=== PATIENT | male | born 1985 | race Caucasian/White ===

== ENCOUNTER 2020-06-29 19:03 | Inpatient (IN) | payer OTHER ==
--- OUTSIDE RECORDS SUMMARY | 2020-06-29 19:16 | XMS ---
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 If such information is present, then the following federally mandated warning applies: This information has been disclosed to you from records protected by federal confidentiality rules (42 CFR part 2). The federal rules prohibit you from making any further disclosure of this information unless further disclosure is expressly permitted by the written consent of the person to whom it pertains or as otherwise permitted by 42 CFR part 2. A general authorization for the release of medical or other information is NOT sufficient for this purpose. The Federal rules restrict any use of the information to criminally investigate or prosecute any alcohol or drug abuse patient.The records that you are about to access may contain highly sensitive health information, the redisclosure of which is protected by Article 27-F of the [facility] Public Health law. If you continue you may haveaccess to information: Regarding HIV / AIDS; Provided by facilities licensed or operated by the [facility] Office of Mental Health; or Provided by the [facility] Office for People With Developmental Disabilities. If such information is present, then the following [facility] mandated warning applies: This information has been disclosed to you from confidential records which are protected by state law. State law prohibits you from making any further disclosure of this information without the specific written consent of the person to whom it pertains, or as otherwise permitted by law. Any unauthorized further disclosure in violation of state law may result in a fine or fpc sentence or both. A general authorization for the release of medical or other information is NOT sufficient authorization for further disclosure. Insurance Providers Payer name Policy type Policy ID Covered Covered alliance party's Policy P bianca / Coverage alliance party ID relationship to Guerrero Inf ormation type guerrero GWEN [id number] 100 HEALTH NON CAP
--- NOTE | 2020-06-29 20:44 | BHS.RME ---
2019 N Coronavirus Screen - COVID-19 Screening Questions Dx of COVID-19 or had a positive test in the last 4 weeks?: No Contact with known/suspected COVID patient in last 14 days?: No Any of these symptoms or contact with someone who has?: Body Aches, Congestion or runny nose (withdrawal symptoms), Nausea or vomiting (vomiting x3) Substance Use & Tx History - Substance Use History Xanax Substance amount: 6mg Frequency of use: Daily Date of Last Use: 06/29/20 Heroin Substance amount: 16 bagts Frequency of use: Daily Substance route: Injection (ex: intravenous or skin popping) Date of Last Use: 06/29/20 - Last Treatment Date of last treatment: 10/05/2015-10/06/2015- Administrative d/c for smoking in room Treatment type: Substance Use Disorder (DILAN) Where was last treatment: Detox Physical/Psych/Mental Status - Behavior General Behavior: Increased activity (restlessness, agitation) Eye Contact: Normal - Cooperativeness Cooperativeness: Cooperative - Thinking Thought Processes: Logical Thought content: Future oriented - Physical Health Problems Is patient presently having any pain?: Yes (body aches, muscles aches, KNUTSON) Does patient presently have any injuries (include location): No Does patient currently have a fever: No COWS - Scale Resting Pulse: 2= [place] 101-120 Sweatin=Flushed/Facial Moisture Restless Observation: 1= Difficult to Sit Still Pupil Size: 1= Pupils >than Normal Bone or Joint Aches: 2= Severe Diffuse Aches Runny Nose/ Eye Tearin= Runny Nose/Eyes GI Upset > 30mins: 3= Vomiting/Diarrhea (vomiting x 2, no diarrhea) Tremor Observation: 2= Slight Tremor Visible Yawning Observation: 1= 1-2x During Session Anxiety or Irritability: 2=Irritable/Anxious Goose Flesh Skin: 0=Smooth Skin COWS Score: 18 CIWA Nausea/Vomitin (voomiting x 2) Muscle Tremors: 3 Anxiety: 3 Agitation: 3 Paroxysmal Sweats: 2 Orientation: 0-Oriented Tacttile Disturbances: 0-None Auditory Disturbances: 0-None Visual Disturbances: 0-None Headache: 4-Moderately Severe CIWA-Ar Total Score: 17 Treatment Recommendation - Level of Care Level of Care: Opioid Treatment Program (OTP) (Benzo. and heroin detoxification)
--- NOTE | 2020-06-29 21:29 | HP ---
COWS - Scale Resting Pulse: 2= [place] 101-120 Sweatin=Flushed/Facial Moisture Restless Observation: 1= Difficult to Sit Still Pupil Size: 1= Pupils >than Normal Bone or Joint Aches: 2= Severe Diffuse Aches Runny Nose/ Eye Tearin= Runny Nose/Eyes GI Upset > 30mins: 3= Vomiting/Diarrhea (vomiting x 2, no diarrhea) Tremor Observation: 2= Slight Tremor Visible Yawning Observation: 1= 1-2x During Session Anxiety or Irritability: 2=Irritable/Anxious Goose Flesh Skin: 0=Smooth Skin COWS Score: 18 CIWA Score Nausea/Vomitin (voomiting x 2) Muscle Tremors: 3 Anxiety: 3 Agitation: 3 Paroxysmal Sweats: 2 Orientation: 0-Oriented Tacttile Disturbances: 0-None Auditory Disturbances: 0-None Visual Disturbances: 0-None Headache: 4-Moderately Severe CIWA-Ar Total Score: 17 - Admission Criteria OASAS Guidelines: Admission for Medically Managed Detox: Requires at least one of the followin. CIWA greater than 12 2. Seizures within the past 24 hours 3. Delirium tremens within the past 24 hours 4. Hallucinations within the past 24 hours 5. Acute intervention needed for co occurring medical disorder 6. Acute intervention needed for co occurring psychiatric disorder 7. Severe withdrawal that cannot be handled at a lower level of care (continued vomiting, continued diarrhea, abnormal vital signs) requiring intravenous medication and/or fluids 8. Admitting History and Physical - Smoking History Smoking history: Current every day smoker Have you smoked in the past 12 months: Yes Aproximately how many cigarettes per day: 20 - Alcohol/Substance Use Hx Alcohol Use: No Admission [facility] Allergies/Adverse Reactions: Allergies Allergy/AdvReac Type Severity Reaction Status Date / Time No Known Allergies Allergy Verified 10/05/15 16:08 History of Present Illness: 35 y.o. male requesting detox from heroin use , relapsed March 2019 , was sober 3.5 yrs , moved to [place] and had a job , returned to [place] and relapsed. heroin - 8-16 bags/ day IV in UE , needles from the store , + sharing , + re-using , had swelling in the left forearm 2-3 weeks ago . Latest use this morning . cannabis : not daily crystal metamphetamine IV cocaine : IV benzo : 2 mg xanax 2-3 /day , had withdrawal seizure once , has blackouts w/ use , latest use today etoh - 2 packs of beer - 2 pints whiskey daily " when I am drinking " , latest use > 24 hrs ago tobacco : 09/18-09/16 ppd finances habit through construction work PMHX : dog bite left LE w/ scarring and nerve damage (2016) PSHx : LLE as above Psych : denies Meds : denies allergies : NKDA Exam Limitations: Clinical Condition - Review of Systems Constitutional: Loss of Appetite, Malaise, Unintentional Wgt. Loss (35 lbs since using crystal metamphetamine February 2020) EENT: reports: Other (glasses) Respiratory: reports: Shortness of Breath (intermittent , states sometimes awakening him from sleep and has to drink water for it.) Cardiac: reports: No Symptoms Reported GI: reports: Poor Appetite, Vomiting : reports: No Symptoms Reported Musculoskeletal: reports: Muscle Pain Integumentary: reports: Flushing, Sweating, Other (IV use) Neuro: reports: No Symptoms reported Endocrine: reports: See HPI, Flushing, Unexplained Weight Loss Hematology: reports: No Symptoms Reported Psychiatric: reports: Orientated x3, Agitated, Anxious Patient History - Patient Medical History Hx Anemia: No Hx Asthma: No Hx Chronic Obstructive Pulmonary Disease (COPD): No Hx Cancer: No Hx Cardiac Disorders: No Hx Congestive Heart Failure: No Hx Hypertension: No Hx Hypercholesterolemia: No Hx Pacemaker: No HX Cerebrovascular Accident: No Hx Seizures: No Hx Dementia: No Hx Diabetes: No Hx Gastrointestinal Disorders: No Hx Liver Disease: No Hx Genitourinary Disorders: No Hx Sexually Transmitted Disorders: No Hx Renal Disease (ESRD): No Hx Thyroid Disease: No Hx Human Immunodeficiency Virus (HIV): No Hx Hepatitis C: No Hx Depression: No Hx Suicide Attempt: No Hx Schizophrenia: No - Patient Surgical History Past Surgical History: No Hx Neurologic Surgery: No Hx Cataract Extraction: No Hx Cardiac Surgery: No Hx Lung Surgery: No Hx Breast Surgery: No Hx Breast Biopsy: No Hx Abdominal Surgery: No Hx Appendectomy: No Hx Cholecystectomy: No Hx Genitourinary Surgery: No Hx Section: No Hx Orthopedic Surgery: No Other Surgical History: left leg Anesthesia Reaction: No - PPD History Date: 08/28/13 Results: 0 mm - Smoking Cessation Smoking history: Current every day smoker Have you smoked in the past 12 months: Yes Aproximately how many cigarettes per day: 20 Cigars Per Day: 12 Hx Chewing Tobacco Use: No Initiated information on smoking cessation: Yes 'Breaking Loose' booklet given: 06/29/20 Admission Physical Exam [facility] - Physical General Appearance: Yes: Mild Distress, Moderate Distress, Anxious HEENTM: Yes: EOMI, Hearing grossly Normal, Normocephalic, Normal Voice Respiratory: Yes: Chest Non-Tender, Lungs Clear, Normal Breath Sounds, No Respiratory Distress, No Accessory Muscle Use Neck: Yes: No masses,lesions,Nodules, Trachea in good position Cardiology: Yes: Regular Rhythm, Regular Rate, S1, S2, Tachycardia Abdominal: Yes: Non Tender, Soft Back: Yes: Normal Inspection Musculoskeletal: Yes: Gait Steady, Muscle Pain (generalized bodyaches) Extremities: Yes: Normal Range of Motion, Non-Tender Neurological: Yes: Fully Oriented, Alert Integumentary: Yes: Warm, Track Myers (left ue w/ edema/ erythema left forearm and left medially , inferior to antecubital) - Diagnostic (1) Alcohol dependence Current Visit: Yes Status: Chronic (2) Cannabis dependence Current Visit: Yes Status: Chronic (3) Opioid dependence Current Visit: Yes Status: Chronic (4) Sedative dependence Current Visit: Yes Status: Chronic (5) Cocaine dependence, uncomplicated Current Visit: Yes Status: Chronic (6) Nicotine dependence Current Visit: Yes Status: Chronic Qualifiers: Nicotine product type: cigarettes (7) Amphetamine abuse Current Visit: Yes Status: Chronic Inpatient Rehab Admission - Rehab Decision to Admit Inpatient rehab admission?: No
[2020-06-29] MEDS ORDERED: IBUPROFEN 400 MG TABLET (FP) PO PRN (21:41)
[2020-06-29] MEDS ORDERED: BISMUTH SUBSALICYLATE 524 MG/30 ML UD PO PRN (21:41)
[2020-06-29] MEDS ORDERED: MAG HYDROX/AL HYDROX/SIMETH 30 ML UNIT-DOSE CUP PO PRN (21:41)
[2020-06-29] MEDS ORDERED: NICOTINE POLACRILEX 2 MG GUM BUC PRN (21:41)
[2020-06-29] MEDS ORDERED: MAGNESIUM HYDROX 2400MG/30ML ORAL SUSPENSION 30 ML CUP PO PRN (21:41)
[2020-06-29] MEDS ORDERED: ONDANSETRON *ODT* 4 MG TABLET SL PRN (21:41)
[2020-06-29] MEDS ORDERED: MENTHOL/PHENOL 1 EACH UD MM PRN (21:41)
[2020-06-29] MEDS ORDERED: MELATONIN 5 MG TABLETS PO PRN (21:41)
[2020-06-29] MEDS ORDERED: MAGNESIUM CITRATE 300 ML BOTTLE PO PRN (21:41)
[2020-06-29] MEDS ORDERED: ACETAMINOPHEN 325 MG TABLET (FP) PO PRN (21:41)
[2020-06-29] MEDS ORDERED: chlordiazePOXIDE HCL 25 MG CAPSULE PO PRN (21:44)
[2020-06-29 21:57] VITALS: BMI 21.8
--- OUTSIDE RECORDS SUMMARY | 2020-06-29 22:40 | XMS ---
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 If you continue you may haveaccess to information: Regarding HIV / AIDS; Provided by facilities licensed or operated by the [facility] Office of Mental Health; or Provided by the [facility] Office for People With Developmental Disabilities. If such information is present, then the following [facility] mandated warning applies: This information has been [...] law may result in a fine or fdc sentence or both. A general authorization for the release of medical or other information is NOT sufficient authorization for further disclosure. Insurance Providers Payer name Policy type Policy ID Covered Covered green party's Policy P bianca / Coverage green party ID relationship to [employer] Inf ormation type guerrero SELF PAY SP INSURANCE GWEN [id number] 100 HEALTH NON CAP
[2020-06-29] MEDS ORDERED: METHADONE HCL 10 MG TABLET (FOR DETOX USE ONLY) PO ONE (23:00)
[2020-06-29] MEDS: chlordiazePOXIDE HCL 25 MG CAPSULE PO SCH (23:48)
[2020-06-29] MEDS: SULFAMETHOXAZOLE/TRIMETHOPRIM 800MG/160MG D.S. TABLET PO SCH (23:56)
[2020-06-29] MEDS: THIAMINE HCL 100 MG TABLET (FP) PO SCH (23:56)
[2020-06-30] MEDS: chlordiazePOXIDE HCL 25 MG CAPSULE PO SCH (05:28)
[2020-06-30] MEDS ORDERED: METHADONE HCL 5 MG TABLET (FOR DETOX USE ONLY) ONE (08:37)
[2020-06-30] MEDS ORDERED: METHADONE HCL 10 MG TABLET (FOR DETOX USE ONLY) ONE (08:37)
--- NOTE | 2020-06-30 08:46 | CONSULT ---
[facility] Psychiatric Consult - Data Date of interview: 06/30/20 Admission source: Self-referred Identifying data: Mr Schulz is a 35 years old male seeking detox treatment for alcohol, opioid, cocaine, benzodiazepine, cannabis and methamphetamine Substance Abuse History: Reports history of alcohol, heroin, cocaine, xanax, marijuana and crystal meth use. Refer to addiction counselor's summary for further information Medical History: Significant for history of surgery to repair nerve damage of left leg due to a dog bite in 2016. Smokes 10 cigarettes daily Psychiatric History: Patient is known for multiple previous admission to this facility. He was approached at bedside for psychiatric interview. told food writer:" I have to see you for what. I don't want to see psychiatrist"
--- NOTE | 2020-06-30 09:56 | PN ---
[facility] CIWA - CIWA Score Nausea/Vomitin Muscle Tremors: 3 Anxiety: 3 Agitation: 3 Paroxysmal Sweats: 1-Minimal Palms Moist Orientation: 0-Oriented Tacttile Disturbances: 1-Very Mild Itch/Numbness Auditory Disturbances: 0-None Visual Disturbances: 0-None Headache: 2-Mild CIWA-Ar Total Score: 16 BHS COWS - Scale Resting Pulse: 0= [place] 80 or Below Sweatin= No chills or Flushing Restless Observation: 3= Extraneous Movement Pupil Size: 1= Pupils >than Normal Bone or Joint Aches: 2= Severe Diffuse Aches Runny Nose/ Eye Tearin= Runny Nose/Eyes GI Upset > 30mins: 2= Nausea/Diarrhea Tremor Observation of Outstretched Hands: 2= Slight Tremor Visible Yawning Observation: 2= >3x During Session Anxiety or Irritability: 2=Irritable/Anxious Goose Flesh Skin: 0=Smooth Skin COWS Score: 16 S Progress Note (SOAP) Subjective: alert,irritable,anxious,sweating,pain in the body,back,nausea ,diarrhea,interrupted sleep,tremor Objective: 06/30/20 09:54 Vital Signs Temperature 97.1 F L 06/30/20 09:30 Pulse Rate 63 06/30/20 09:30 Respiratory Rate 18 06/30/20 09:30 Blood Pressure 132/63 06/30/20 09:30 O2 Sat by Pulse Oximetry (%) 97 06/30/20 09:30 06/30/20 09:55 labs pending Assessment: 06/30/20 09:55 withdrawal symptom Plan: continue detox,patient would like regimen to change for methadone and librium to methadone and valium
[2020-06-30] MEDS ORDERED: METHADONE (DETOX) 20 MG, METHADONE (DETOX) 5 MG PO ONE (10:00)
[2020-06-30 10:07] LABS: ALBUMIN 2.8 g/dl (3.4-5.0); CALCIUM 9.6 mg/dL (8.5-10.1); POTASSIUM 3.9 mmol/L (3.5-5.1)
[2020-06-30 10:08] LABS: BILIRUBIN,TOTAL 1.1 mg/dL (0.2-1); CREATININE 0.8 mg/dL (0.55-1.3)
[2020-06-30] MEDS: SULFAMETHOXAZOLE/TRIMETHOPRIM 800MG/160MG D.S. TABLET PO SCH ×2 (10:10→22:09)
[2020-06-30] MEDS: PRENATAL VITAMINS W/ FOLIC ACID TABLET (FP) PO SCH (10:10)
[2020-06-30 10:11] LABS: HEMATOCRIT 32.5 % (35.4-49); HEMOGLOBIN 10.7 GM/dL (11.7-16.9); MCH 26.2 pg (25.7-33.7); MCHC 33.1 g/dl (32.0-35.9); MEAN CELL VOLUME 79.2 fl (80-96); MEAN PLT VOLUME 8.1 fl (7.5-11.1); PLATELET COUNT 251 K/MM3 (134-434); RDW 15.7 % (11.9-15.9); WHITE BLOOD COUNT 3.7 K/mm3 (4.0-10.0)
[2020-06-30] MEDS: diazePAM 5 MG TABLET PO SCH ×3 (10:15→22:08)
[2020-06-30] MEDS: METHOCARBAMOL 500 MG TABLET PO PRN (10:16)
[2020-06-30] MEDS: ACETAMINOPHEN 325 MG TABLET (FP) PO PRN (10:16)
[2020-06-30] MEDS: hydrOXYzine PAMOATE 25 MG CAPSULE (FP) PO PRN (10:16)
[2020-06-30] MEDS ORDERED: PNEUMOCOCCAL 23 VACCINE 0.5 ML VIAL IM ONE (12:00)
--- NOTE | 2020-06-30 13:43 | EKG ---
Test Reason : Blood Pressure : / mmHG Vent. Rate : 076 BPM Atrial Rate : 076 BPM P-R Int : 152 ms QRS Dur : 100 ms QT Int : 364 ms P-R-T Axes : 055 -06 044 degrees QTc Int : 409 ms NORMAL SINUS RHYTHM NORMAL ECG NO PREVIOUS ECGS AVAILABLE Confirmed by STAN WHEELER MD ([id number]) on 06/30/2020 1:42:28 PM Referred By: Gaetano Mittal Confirmed By:STAN WHEELER MD
[2020-06-30] MEDS: THIAMINE HCL 100 MG TABLET (FP) PO SCH (22:08)
[2020-07-01] MEDS: diazePAM 5 MG TABLET PO PRN ×3 (00:55→19:23)
[2020-07-01] MEDS ORDERED: chlordiazePOXIDE HCL 25 MG CAPSULE PO SCH (05:00)
[2020-07-01] MEDS: diazePAM 5 MG TABLET PO SCH ×4 (05:37→22:11)
[2020-07-01] MEDS ORDERED: METHADONE HCL 10 MG TABLET (FOR DETOX USE ONLY) PO ONE (10:00)
[2020-07-01] MEDS: hydrOXYzine PAMOATE 25 MG CAPSULE (FP) PO PRN (10:17)
[2020-07-01] MEDS: METHOCARBAMOL 500 MG TABLET PO PRN (10:18)
[2020-07-01] MEDS: SULFAMETHOXAZOLE/TRIMETHOPRIM 800MG/160MG D.S. TABLET PO SCH ×2 (10:18→22:11)
[2020-07-01] MEDS: PRENATAL VITAMINS W/ FOLIC ACID TABLET (FP) PO SCH (10:19)
[2020-07-01] MEDS ORDERED: PNEUMOC 13-VAL CONJ-DIP CRM/PF 0.5 ML DISP.SYRIN IM ONE (12:00)
[2020-07-01] MEDS ORDERED: FLU VACCINE (FLULAVAL) PF 60 MCG/0.5 ML SYRINGE 2020-2021 IM ONE (12:00)
[2020-07-01] MEDS: ACETAMINOPHEN 325 MG TABLET (FP) PO PRN (15:22)
--- NOTE | 2020-07-01 18:11 | PN ---
S CIWA - CIWA Score Nausea/Vomitin-No Nausea/No Vomiting Muscle Tremors: None Anxiety: 4-Mod. Anxious/Guarded Agitation: 3 Paroxysmal Sweats: 3 Orientation: 0-Oriented Tacttile Disturbances: 1-Very Mild Itch/Numbness Auditory Disturbances: 0-None Visual Disturbances: 1-Very Mild Sensitivity Headache: 0-None Present CIWA-Ar Total Score: 12 BHS COWS - Scale Resting Pulse: 0= [place] 80 or Below Sweatin= Chills/Flushing Restless Observation: 1= Difficult to Sit Still Pupil Size: 0= Normal to Room Light Bone or Joint Aches: 2= Severe Diffuse Aches Runny Nose/ Eye Tearin= None GI Upset > 30mins: 0= None Tremor Observation of Outstretched Hands: 2= Slight Tremor Visible Yawning Observation: 1= 1-2x During Session Anxiety or Irritability: 2=Irritable/Anxious Goose Flesh Skin: 3=Piloerection COWS Score: 12 BHS Progress Note (SOAP) Subjective: Anxious, Sweating, Tremors, Restless. Objective: Patient A & O X 3, Observed Ambulating on Detox Unit Unassisted. In No Acute Distress. 07/01/20 18:07 Vital Signs Temperature 97.7 F 07/01/20 16:55 Pulse Rate 76 07/01/20 16:55 Respiratory Rate 17 07/01/20 16:55 Blood Pressure 121/69 07/01/20 16:55 O2 Sat by Pulse Oximetry (%) 99 07/01/20 16:55 Laboratory Tests 06/29/20 06/30/20 06/30/20 23:50 07:50 07:50 WBC 3.7 L RBC 4.10 Hgb 10.7 L Hct 32.5 L MCV 79.2 L MCH 26.2 D MCHC 33.1 RDW 15.7 D Plt Count 251 MPV 8.1 Sodium Potassium Chloride Carbon Dioxide Anion Gap BUN Creatinine Est GFR (CKD-EPI)AfAm Est GFR (CKD-EPI)NonAf Random Glucose Calcium Total Bilirubin AST ALT Alkaline Phosphatase Total Protein Albumin Syphilis Serology Non-reactive COVID-19 (DWAINE) Not detected 06/30/20 07:50 WBC RBC Hgb Hct MCV MCH MCHC RDW Plt Count MPV Sodium 136 Potassium 3.9 Chloride 97 L Carbon Dioxide 34 H Anion Gap 5 L BUN 13.0 Creatinine 0.8 Est GFR (CKD-EPI)AfAm 133.20 Est GFR (CKD-EPI)NonAf 114.93 Random Glucose 93 Calcium 9.6 Total Bilirubin 1.1 H AST 36 ALT 46 Alkaline Phosphatase 277 H Total Protein 6.0 L Albumin 2.8 L Syphilis Serology COVID-19 (DWAINE) Lab Results noted. Assessment: 07/01/20 18:09 WITHDRAWAL SYMPTOMS. ELEVATED AP LEVEL. Plan: Continue Detox. Feosol, 325 mg TIDCM for Anemia. PRN Methocarbamol for body aches / muscle spasms.
[2020-07-01] MEDS: FERROUS SO4 325 MG TABLET (FP) PO SCH (19:00)
[2020-07-01] MEDS: THIAMINE HCL 100 MG TABLET (FP) PO SCH (22:11)
[2020-07-02] MEDS ORDERED: chlordiazePOXIDE HCL 10 MG CAPSULE PO PRN
[2020-07-02] MEDS: METHOCARBAMOL 500 MG TABLET PO PRN (00:39)
[2020-07-02] MEDS: diazePAM 5 MG TABLET PO PRN ×2 (00:40→09:31)
[2020-07-02] MEDS ORDERED: chlordiazePOXIDE HCL 10 MG CAPSULE PO SCH (05:00)
[2020-07-02] MEDS ORDERED: diazePAM 5 MG TABLET PO SCH (06:00)
[2020-07-02] MEDS: FERROUS SO4 325 MG TABLET (FP) PO SCH (07:28)
[2020-07-02] MEDS ORDERED: METHADONE HCL 5 MG TABLET (FOR DETOX USE ONLY) ONE (08:55)
[2020-07-02] MEDS ORDERED: METHADONE HCL 10 MG TABLET (FOR DETOX USE ONLY) ONE (08:55)
[2020-07-02] MEDS: SULFAMETHOXAZOLE/TRIMETHOPRIM 800MG/160MG D.S. TABLET PO SCH (09:28)
[2020-07-02] MEDS: PRENATAL VITAMINS W/ FOLIC ACID TABLET (FP) PO SCH (09:28)
[2020-07-02 09:55] VITALS: BP 127/87; PULSE 87; TEMP 97.5
[2020-07-02] MEDS ORDERED: METHADONE (DETOX) 10 MG, METHADONE (DETOX) 5 MG PO ONE (10:00)
--- NOTE | 2020-07-02 11:33 | PN ---
[facility] CIWA - CIWA Score Nausea/Vomitin-Mild Nausea/No Vomiting Muscle Tremors: 2 Anxiety: 3 Agitation: 2 Paroxysmal Sweats: 2 Orientation: 0-Oriented Tacttile Disturbances: 0-None Auditory Disturbances: 0-None Visual Disturbances: 0-None Headache: 0-None Present CIWA-Ar Total Score: 10 [facility] COWS - Scale Resting Pulse: 0= [place] 80 or Below Sweatin= Chills/Flushing Restless Observation: 0= Sits Still Pupil Size: 0= Normal to Room Light Bone or Joint Aches: 2= Severe Diffuse Aches Runny Nose/ Eye Tearin= None GI Upset > 30mins: 0= None Tremor Observation of Outstretched Hands: 2= Slight Tremor Visible Yawning Observation: 0= None Anxiety or Irritability: 2=Irritable/Anxious Goose Flesh Skin: 0=Smooth Skin COWS Score: 7 [facility] Progress Note (SOAP) Subjective: Complaints of sweats, anxiety. tremors, and joints aches. Objective: 07/02/20 11:32 Vital Signs 07/02/20 07/02/20 06:17 09:10 Temperature 97.0 F L 97.5 F L Pulse Rate 65 87 Respiratory 20 17 Rate Blood Pressure 110/64 127/87 O2 Sat by Pulse 100 100 Oximetry (%) Laboratory Last Values WBC 3.7 K/mm3 (4.0-10.0) L 06/30/20 07:50 RBC 4.10 M/mm3 (4.00-5.60) 06/30/20 07:50 Hgb 10.7 GM/dL (11.7-16.9) L 06/30/20 07:50 Hct 32.5 % (35.4-49) L 06/30/20 07:50 MCV 79.2 fl (80-96) L 06/30/20 07:50 MCH 26.2 pg (25.7-33.7) D 06/30/20 07:50 MCHC 33.1 g/dl (32.0-35.9) 06/30/20 07:50 RDW 15.7 % (11.9-15.9) D 06/30/20 07:50 Plt Count 251 K/MM3 (134-434) 06/30/20 07:50 MPV 8.1 fl (7.5-11.1) 06/30/20 07:50 Sodium 136 mmol/L (136-145) 06/30/20 07:50 Potassium 3.9 mmol/L (3.5-5.1) 06/30/20 07:50 Chloride 97 mmol/L (98-107) L 06/30/20 07:50 Carbon Dioxide 34 mmol/L (21-32) H 06/30/20 07:50 Anion Gap 5 MMOL/L (8-16) L 06/30/20 07:50 BUN 13.0 mg/dL (7-18) 06/30/20 07:50 Creatinine 0.8 mg/dL (0.55-1.3) 06/30/20 07:50 Est GFR (CKD-EPI)AfAm 133.20 06/30/20 07:50 Est GFR (CKD-EPI)NonAf 114.93 06/30/20 07:50 Random Glucose 93 mg/dL (74-106) 06/30/20 07:50 Calcium 9.6 mg/dL (8.5-10.1) 06/30/20 07:50 Total Bilirubin 1.1 mg/dL (0.2-1) H 06/30/20 07:50 AST 36 U/L (15-37) 06/30/20 07:50 ALT 46 U/L (13-61) 06/30/20 07:50 Alkaline Phosphatase 277 U/L (45-117) H 06/30/20 07:50 Total Protein 6.0 g/dl (6.4-8.2) L 06/30/20 07:50 Albumin 2.8 g/dl (3.4-5.0) L 06/30/20 07:50 Syphilis Serology Non-reactive (NONREACTIVE) 06/30/20 07:50 COVID-19 (DWAINE) Not detected (Not Detected) 06/29/20 23:50 Labs noted. Assessment: 07/02/20 11:32 Alert and oriented x3, in no acute respiratory distress. Full ROM, ambulating in unit without any assistance. Skin warm to touch. Withdrawal symptoms. Plan: Continue detox protocol.
--- NOTE | 2020-07-02 11:55 | DS ---
[facility] Detox Discharge Summary Admission Date: 06/29/20 Discharge Date: 07/02/20 - History Present History: Alcohol Dependence, Cannabis Dependence, Cocaine Dependence, Opioid Dependence Additional Comments: Detox protocol not completed, patient requesting to leave AMA. Encouraged to stay but refused. Alert and oriented x3, in no acute respiratory distress. Full ROM, ambulating in unit without any assistance. Skin warm to touch. Encouraged to followup with aftercare. Pertinent Past History: History of dog bite to left lower extremity, alcohol, Benzo, Cannabis, Crystal Meth,cocaine and nicotine use disorder. - Physical Exam Results Vital Signs: Vital Signs Temperature 97.5 F L 07/02/20 09:10 Pulse Rate 87 07/02/20 09:10 Respiratory Rate 17 07/02/20 09:10 Blood Pressure 127/87 07/02/20 09:10 O2 Sat by Pulse Oximetry (%) 100 07/02/20 09:10 Vital Signs 07/02/20 07/02/20 06:17 09:10 Temperature 97.0 F L 97.5 F L Pulse Rate 65 87 Respiratory 20 17 Rate Blood Pressure 110/64 127/87 O2 Sat by Pulse 100 100 Oximetry (%) Laboratory Last Values WBC 3.7 K/mm3 (4.0-10.0) L 06/30/20 07:50 RBC 4.10 M/mm3 (4.00-5.60) 06/30/20 07:50 Hgb 10.7 GM/dL (11.7-16.9) L 06/30/20 07:50 Hct 32.5 % (35.4-49) L 06/30/20 07:50 MCV 79.2 fl (80-96) L 06/30/20 07:50 MCH 26.2 pg (25.7-33.7) D 06/30/20 07:50 MCHC 33.1 g/dl (32.0-35.9) 06/30/20 07:50 RDW 15.7 % (11.9-15.9) D 06/30/20 07:50 Plt Count 251 K/MM3 (134-434) 06/30/20 07:50 MPV 8.1 fl (7.5-11.1) 06/30/20 07:50 Sodium 136 mmol/L (136-145) 10/16/20 07:50 Potassium 3.9 mmol/L (3.5-5.1) 06/30/20 07:50 Chloride 97 mmol/L (98-107) L 06/30/20 07:50 Carbon Dioxide 34 mmol/L (21-32) H 06/30/20 07:50 Anion Gap 5 MMOL/L (8-16) L 06/30/20 07:50 BUN 13.0 mg/dL (7-18) 06/30/20 07:50 Creatinine 0.8 mg/dL (0.55-1.3) 06/30/20 07:50 Est GFR (CKD-EPI)AfAm 133.20 06/30/20 07:50 Est GFR (CKD-EPI)NonAf 114.93 06/30/20 07:50 Random Glucose 93 mg/dL (74-106) 06/30/20 07:50 Calcium 9.6 mg/dL (8.5-10.1) 06/30/20 07:50 Total Bilirubin 1.1 mg/dL (0.2-1) H 06/30/20 07:50 AST 36 U/L (15-37) 06/30/20 07:50 ALT 46 U/L (13-61) 06/30/20 07:50 Alkaline Phosphatase 277 U/L (45-117) H 06/30/20 07:50 Total Protein 6.0 g/dl (6.4-8.2) L 06/30/20 07:50 Albumin 2.8 g/dl (3.4-5.0) L 06/30/20 07:50 Syphilis Serology Non-reactive (NONREACTIVE) 06/30/20 07:50 COVID-19 (DWAINE) Not detected (Not Detected) 06/29/20 23:50 Pertinent Admission Physical Exam Findings: Withdrawal symptoms. - Medication Discharge Medications: Ambulatory Orders NK [No Known Home Medication] 06/29/20 - Diagnosis (1) Alcohol dependence Current Visit: Yes Status: Chronic (2) Amphetamine abuse Current Visit: Yes Status: Chronic (3) Cannabis dependence Current Visit: Yes Status: Chronic (4) Cocaine dependence, uncomplicated Current Visit: Yes Status: Chronic (5) Nicotine dependence Current Visit: Yes Status: Chronic Qualifiers: Nicotine product type: cigarettes (6) Opioid dependence Current Visit: Yes Status: Chronic (7) Opioid dependence with withdrawal Current Visit: No Status: Acute - AMA Did Patient Leave Against Medical Advice: Yes
[2020-07-03] MEDS ORDERED: chlordiazePOXIDE HCL 10 MG CAPSULE PO SCH (05:00)
[2020-07-03] MEDS ORDERED: diazePAM 5 MG TABLET PO SCH (06:00)
[2020-07-03] MEDS ORDERED: METHADONE HCL 10 MG TABLET (FOR DETOX USE ONLY) PO ONE (10:00)
[2020-07-04] MEDS ORDERED: chlordiazePOXIDE HCL 10 MG CAPSULE PO ONE (05:00)
[2020-07-04] MEDS ORDERED: diazePAM 5 MG TABLET PO ONE (06:00)
[2020-07-04] MEDS ORDERED: METHADONE HCL 5 MG TABLET (FOR DETOX USE ONLY) PO ONE (06:00)
== END 2020-07-02 11:59 | disposition left against medical advice (07) | DRG 770 ==
LOC: YASAS 19:03 → Y6N 22:37
PROVIDERS: ADMIT Allergy & Immunology; ATTEND Allergy & Immunology
PROC: HZ2ZZZZ Detoxification Services for Substance Abuse Treatment (ICD-10-PCS; principal; 2020-06-29)
DX: F11.23 Opioid dependence with withdrawal (principal); F10.230 Alcohol dependence with withdrawal, uncomplicated; F14.20 Cocaine dependence, uncomplicated; F13.20 Sedative, hypnotic or anxiolytic dependence, uncomplicated; F12.20 Cannabis dependence, uncomplicated; F15.10 Other stimulant abuse, uncomplicated; F17.210 Nicotine dependence, cigarettes, uncomplicated; R74.8 Abnormal levels of other serum enzymes; R63.4 Abnormal weight loss; Z68.21 Body mass index [BMI] 21.0-21.9, adult
CPT/HCPCS: 36415; 80053; 85027; 86780; 93005; 93010; C9803; Q0162; Q2036; U0003

== ENCOUNTER 2021-09-16 19:56 | Inpatient (IN) | payer OTHER ==
[2021-09-16 21:40] VITALS: BMI 21.5
[2021-09-16] MEDS ORDERED: IBUPROFEN 400 MG TABLET (FP) PO PRN (22:21)
[2021-09-16] MEDS ORDERED: ONDANSETRON *ODT* 4 MG TABLET SL PRN (22:21)
[2021-09-16] MEDS ORDERED: chlordiazePOXIDE HCL 25 MG CAPSULE PO PRN (22:21)
[2021-09-16] MEDS ORDERED: MENTHOL/PHENOL 1 EACH UD MM PRN (22:21)
[2021-09-16] MEDS ORDERED: BISMUTH SUBSALICYLATE 524 MG/30 ML PO PRN (22:21)
[2021-09-16] MEDS ORDERED: methaDONE HCL 10 MG TABLET (FOR DETOX USE ONLY) PO ONE (22:21)
[2021-09-16] MEDS ORDERED: ACETAMINOPHEN 325 MG TABLET (FP) PO PRN ×2 (22:21)
[2021-09-16] MEDS ORDERED: MAG HYDROX/AL HYDROX/SIMETH 30 ML UNIT-DOSE CUP PO PRN (22:21)
[2021-09-16] MEDS ORDERED: MAGNESIUM HYDROX 2400MG/30ML ORAL SUSPENSION 30 ML CUP PO PRN (22:21)
[2021-09-16] MEDS ORDERED: MAGNESIUM CITRATE 300 ML BOTTLE PO PRN (22:21)
[2021-09-16] MEDS ORDERED: cloNIDine HCL 0.1 MG TABLET PO PRN (22:21)
[2021-09-17] MEDS: chlordiazePOXIDE HCL 25 MG CAPSULE PO SCH ×5 (00:35→22:00)
[2021-09-17] MEDS ORDERED: methaDONE HCL 10 MG TABLET (FOR DETOX USE ONLY) ONE (10:01)
[2021-09-17 11:11] LABS: HEMATOCRIT 40.1 % (35.4-49); MCH 27.6 pg (25.7-33.7); MCHC 32.5 g/dl (32.0-35.9); MEAN CELL VOLUME 84.9 fl (80-96); MEAN PLT VOLUME 8.8 fl (7.5-11.1); PLATELET COUNT 225 10^3/uL (134-434); RBC 4.72 M/mm3 (4.00-5.60); RDW 14.8 % (11.9-15.9); WHITE BLOOD COUNT 5.3 K/mm3 (4.0-10.0)
[2021-09-17] MEDS: PRENATAL VITAMINS W/ FOLIC ACID TABLET (FP) PO SCH (11:25)
[2021-09-17] MEDS: METHOCARBAMOL 500 MG TABLET PO PRN (11:25)
[2021-09-17 11:35] LABS: CALCIUM 8.6 mg/dL (8.5-10.1)
[2021-09-17 11:36] LABS: ALBUMIN 3.8 g/dl (3.4-5.0); BLOOD UREA NITROGEN 17.9 mg/dL (7-18)
[2021-09-17 11:39] LABS: CREATININE 0.9 mg/dL (0.55-1.3)
[2021-09-17 11:40] LABS: BILIRUBIN,TOTAL 0.4 mg/dL (0.2-1)
[2021-09-17 11:41] LABS: TOT PROT 6.8 g/dl (6.4-8.2)
[2021-09-17] MEDS: MELATONIN 5 MG TABLETS PO SCH (22:01)
[2021-09-17] MEDS: THIAMINE HCL 100 MG TABLET (FP) PO SCH (22:01)
[2021-09-18] MEDS: chlordiazePOXIDE HCL 25 MG CAPSULE PO SCH ×4 (06:11→22:46)
[2021-09-18] MEDS ORDERED: methaDONE HCL 10 MG TABLET (FOR DETOX USE ONLY) PO ONE (10:00)
[2021-09-18] MEDS: PRENATAL VITAMINS W/ FOLIC ACID TABLET (FP) PO SCH (10:59)
[2021-09-18] MEDS ORDERED: ONDANSETRON *ODT* 4 MG TABLET SL ONE (14:40)
[2021-09-18] MEDS: MELATONIN 5 MG TABLETS PO SCH (22:46)
[2021-09-18] MEDS: THIAMINE HCL 100 MG TABLET (FP) PO SCH (22:46)
[2021-09-19] MEDS ORDERED: chlordiazePOXIDE HCL 10 MG CAPSULE PO PRN
[2021-09-19] MEDS: chlordiazePOXIDE HCL 10 MG CAPSULE PO SCH ×4 (05:37→22:57)
[2021-09-19] MEDS ORDERED: methaDONE HCL 10 MG TABLET (FOR DETOX USE ONLY) ONE (08:59)
[2021-09-19] MEDS: PRENATAL VITAMINS W/ FOLIC ACID TABLET (FP) PO SCH (10:00)
[2021-09-19] MEDS: METHOCARBAMOL 500 MG TABLET PO PRN ×2 (10:00→22:55)
[2021-09-19] MEDS: THIAMINE HCL 100 MG TABLET (FP) PO SCH (22:55)
[2021-09-19] MEDS: MELATONIN 5 MG TABLETS PO SCH (22:57)
[2021-09-20] MEDS ORDERED: chlordiazePOXIDE HCL 10 MG CAPSULE PO SCH (05:00)
[2021-09-20 07:07] VITALS: TEMP 97.7
[2021-09-20 09:24] VITALS: BP 117/64; PULSE 79
[2021-09-20] MEDS: PRENATAL VITAMINS W/ FOLIC ACID TABLET (FP) PO SCH (09:52)
[2021-09-20] MEDS ORDERED: methaDONE HCL 10 MG TABLET (FOR DETOX USE ONLY) PO ONE (10:00)
[2021-09-21] MEDS ORDERED: chlordiazePOXIDE HCL 10 MG CAPSULE PO ONE (05:00)
== END 2021-09-20 11:33 | disposition home or self-care (01) | DRG 773 ==
LOC: YASAS 19:56 → EDBD 22:42 → Y6N 22:42
PROVIDERS: ADMIT Allergy & Immunology; ATTEND Allergy & Immunology
PROC: HZ2ZZZZ Detoxification Services for Substance Abuse Treatment (ICD-10-PCS; principal; 2021-09-16)
DX: F11.23 Opioid dependence with withdrawal (principal); F10.230 Alcohol dependence with withdrawal, uncomplicated; F14.20 Cocaine dependence, uncomplicated; F15.10 Other stimulant abuse, uncomplicated; U07.1 COVID-19; F41.9 Anxiety disorder, unspecified; F32.A Depression, unspecified; F98.8 Other specified behavioral and emotional disorders with onset usually occurring in childhood and adolescence; Z87.891 Personal history of nicotine dependence; Z56.0 Unemployment, unspecified; Z59.00 Homelessness unspecified
CPT/HCPCS: 36415; 80053; 85027; 86780; 93005; 93010; C9803; Q0162; U0003; U0005

== ENCOUNTER 2022-02-26 16:18 | Inpatient (IN) | payer OTHER ==
[2022-02-26] MEDS ORDERED: MAGNESIUM HYDROX 2400MG/30ML ORAL SUSPENSION 30 ML CUP PO PRN (21:13)
[2022-02-26] MEDS ORDERED: IBUPROFEN 600 MG TABLET (FP) PO PRN (21:13)
[2022-02-26] MEDS ORDERED: ACETAMINOPHEN 325 MG TABLET (FP) PO PRN ×2 (21:13)
[2022-02-26] MEDS ORDERED: BISMUTH SUBSALICYLATE 524 MG/30 ML PO PRN (21:13)
[2022-02-26] MEDS ORDERED: ONDANSETRON *ODT* 4 MG TABLET SL PRN (21:13)
[2022-02-26] MEDS ORDERED: MAGNESIUM CITRATE 300 ML BOTTLE PO PRN (21:13)
[2022-02-26] MEDS ORDERED: DICYCLOMINE HCL 10 MG CAPSULE PO PRN (21:13)
[2022-02-26] MEDS ORDERED: IBUPROFEN 400 MG TABLET (FP) PO PRN (21:13)
[2022-02-26] MEDS ORDERED: LOPERAMIDE HCL 2 MG CAPSULE PO PRN (21:13)
[2022-02-26] MEDS ORDERED: NICOTINE 10 MG CARTRIDGE (INHALER) IH PRN (21:13)
[2022-02-26] MEDS ORDERED: BENZOCAINE/MENTHOL (CHLORASEPTIC ) LOZENGE MM PRN (21:13)
[2022-02-26] MEDS ORDERED: MAG HYDROX/AL HYDROX/SIMETH 30 ML UNIT-DOSE CUP PO PRN (21:13)
[2022-02-26 21:21] VITALS: BMI 21.8
[2022-02-27] MEDS: diazePAM 5 MG TABLET PO SCH ×5 (03:01→22:14)
[2022-02-27] MEDS: THIAMINE HCL 100 MG TABLET (FP) PO SCH ×2 (03:01→22:14)
[2022-02-27] MEDS ORDERED: diazePAM 5 MG TABLET ONE ×2 (03:08→06:21)
[2022-02-27] MEDS: diazePAM 5 MG TABLET PO PRN (03:09)
[2022-02-27] MEDS ORDERED: methaDONE HCL 10 MG TABLET PO SCH (10:00)
[2022-02-27 10:26] LABS: HEMATOCRIT 38.4 % (35.4-49); HEMOGLOBIN 12.3 GM/dL (11.7-16.9); MCH 26.6 pg (25.7-33.7); MCHC 32.1 g/dl (32.0-35.9); MEAN CELL VOLUME 82.8 fl (80-96); MEAN PLT VOLUME 7.8 fl (7.5-11.1); PLATELET COUNT 291 10^3/uL (134-434); RBC 4.63 M/mm3 (4.00-5.60); RDW 15.5 % (11.9-15.9)
[2022-02-27] MEDS ORDERED: methaDONE HCL 40 MG DISPERSABLE TABLET ONE (10:47)
[2022-02-27 10:51] LABS: CALCIUM 8.4 mg/dL (8.5-10.1)
[2022-02-27] MEDS: PRENATAL VITAMINS W/ FOLIC ACID TABLET (FP) PO SCH (10:51)
[2022-02-27 10:52] LABS: ALBUMIN 2.9 g/dl (3.4-5.0); BLOOD UREA NITROGEN 14.2 mg/dL (7-18)
[2022-02-27 10:55] LABS: CREATININE 0.6 mg/dL (0.55-1.3)
[2022-02-27 10:56] LABS: BILIRUBIN,TOTAL 0.5 mg/dL (0.2-1)
[2022-02-27 10:57] LABS: TOT PROT 5.9 g/dl (6.4-8.2)
[2022-02-27 11:40] LABS: HIV INTERPRETATION NEGATIVE (NEGATIVE)
[2022-02-27] MEDS: METHOCARBAMOL 500 MG TABLET PO PRN (18:05)
[2022-02-27] MEDS: MELATONIN 5 MG TABLETS PO PRN (22:13)
[2022-02-28] MEDS ORDERED: methaDONE HCL 40 MG DISPERSABLE TABLET ONE (04:31)
[2022-02-28] MEDS ORDERED: diazePAM 5 MG TABLET PO SCH (06:00)
[2022-02-28] MEDS: diazePAM 5 MG TABLET PO PRN (08:54)
[2022-02-28] MEDS: METHOCARBAMOL 500 MG TABLET PO PRN ×3 (08:56→22:10)
[2022-02-28] MEDS ORDERED: chlordiazePOXIDE HCL 25 MG CAPSULE PO PRN (10:06)
[2022-02-28] MEDS: PRENATAL VITAMINS W/ FOLIC ACID TABLET (FP) PO SCH (11:01)
[2022-02-28] MEDS: chlordiazePOXIDE HCL 10 MG CAPSULE PO SCH ×2 (14:08→22:07)
[2022-02-28] MEDS: THIAMINE HCL 100 MG TABLET (FP) PO SCH (22:07)
[2022-02-28] MEDS: MELATONIN 5 MG TABLETS PO PRN (22:08)
[2022-03-01] MEDS ORDERED: methaDONE HCL 40 MG DISPERSABLE TABLET ONE (04:16)
[2022-03-01] MEDS: chlordiazePOXIDE HCL 10 MG CAPSULE PO SCH ×2 (05:27→18:44)
[2022-03-01] MEDS: METHOCARBAMOL 500 MG TABLET PO PRN ×2 (05:29→18:47)
[2022-03-01] MEDS ORDERED: diazePAM 5 MG TABLET PO SCH (06:00)
[2022-03-01] MEDS: PRENATAL VITAMINS W/ FOLIC ACID TABLET (FP) PO SCH (10:13)
[2022-03-01] MEDS: hydrOXYzine PAMOATE 25 MG CAPSULE (FP) PO PRN ×3 (10:13→22:13)
[2022-03-01] MEDS: THIAMINE HCL 100 MG TABLET (FP) PO SCH (22:12)
[2022-03-01] MEDS: MELATONIN 5 MG TABLETS PO PRN (22:13)
[2022-03-02] MEDS ORDERED: methaDONE HCL 40 MG DISPERSABLE TABLET ONE (03:28)
[2022-03-02] MEDS ORDERED: diazePAM 5 MG TABLET PO ONE (06:00)
[2022-03-02 09:21] VITALS: BP 103/57; PULSE 78; TEMP 97.4
[2022-03-02] MEDS ORDERED: chlordiazePOXIDE HCL 10 MG CAPSULE PO ONE (10:01)
== END 2022-03-02 10:55 | disposition home or self-care (01) | DRG 773 ==
LOC: YASAS 16:18 → UNDOADMIN 17:32 → Y6N 17:32
PROVIDERS: ADMIT Allergy & Immunology; ATTEND Surgery
PROC: HZ2ZZZZ Detoxification Services for Substance Abuse Treatment (ICD-10-PCS; principal; 2022-02-27)
DX: F11.23 Opioid dependence with withdrawal (principal); F10.230 Alcohol dependence with withdrawal, uncomplicated; F13.230 Sedative, hypnotic or anxiolytic dependence with withdrawal, uncomplicated; F14.20 Cocaine dependence, uncomplicated; F17.210 Nicotine dependence, cigarettes, uncomplicated; Z28.310 Unvaccinated for COVID-19
CPT/HCPCS: 36415; 80053; 85027; 86780; 87389; 87811; C9803-CS; U0003; U0005